=== PATIENT | male | born 1985 | race Caucasian/White ===

== ENCOUNTER 2016-03-10 02:38 | Emergency (ER) | payer MEDICARE ==
[~2016-03-10] VITALS: Ht 175.3 cm; Wt 125.2 kg
[2016-03-10] MEDS ORDERED: PERPHENAZINE16 MG PO (03:02)
[2016-03-10] MEDS ORDERED: COGENTIN GENERIC1 MG PO (03:04)
[2016-03-10] MEDS ORDERED: GABAPENTIN 400400 MG PO (03:05)
[2016-03-10] MEDS ORDERED: WARFARIN SODIUM4 MG PO (03:07)
[2016-03-10] MEDS ORDERED: OMEPRAZOLE40 MG PO (03:08)
[2016-03-10] MEDS ORDERED: IBUPROFEN800 MG PO (03:10)
[2016-03-10 03:36] LABS: HEMOGLOBIN 15.7 g/dL (14.1-18.0); LYMPH # 2.5 K/mm3 (0.7-4.5); LYMPH % 28.7 % (10-50)
[2016-03-10 03:37] LABS: URINE BILIRUBIN - DIPSTICK NEGATIVE (NEG); URINE BLOOD NEGATIVE (NEG)
--- NOTE | 2016-03-10 04:36 | Emergency Room Report ---
History of Present Illness Time Seen by MD Sanchez Presenting Problem in Triage Pt arrived:Walked Presenting Problem:"FEELS LIKE HE HAS THE FLU" - DRY HEAVING, SHAKING, COLD SWEAT, STOMACH UPSET Onset of symptoms date/time:03/10/1602/23/99 or onset unknown for: Treatment Prior to Arrival: ECHOCARDIOGRAPH TECHNICIAN Provided by: Sepsis Risk Assessment: Temp: 97.6 B/P: 167/84 MAP: 111 Pulse: 111 Resp: 22 Recent fever? Y Clinical Suspician of Infection? N Mental Status: 1 - Regular (Normal Baseline) Sepsis Risk:Possible Sepsis Risk Have you (or family members/close friends) recently traveled outside the [place]? N If Yes, where/when: Have you had exposure to infectious disease within the past month? N TB? Other? Specify: Source patient, RN notes reviewed, old records Exam Limitations no limitations Comment achey with feeling of sweaty with abd pain and no rash which started tonight Cardiac Chest Pain Chest pain indicative of cardiac No Timing/Duration this evening Severity moderate ALLERGIES Coded Allergies: haloperidol (From HALDOL) (Severe, SEIZURES 03/10/16) risperidone (From RISPERDAL) (Severe, SEIZURES 03/10/16) ziprasidone (From GEODON) (Severe, SEIZURES 03/10/16) Home Medications Reported Medications Perphenazine 16 MG PO BID BENZTROPINE MESYLATE (COGENTIN 1MG TAB) 1 MG PO QHS GABAPENTIN (Gabapentin) 400 MG PO TID Warfarin Sodium (Warfarin 4MG) 4 MG PO BID Omeprazole (Omeprazole 40MG) 40 MG PO DAILY Ibuprofen (Ibuprofen 800MG) 800 MG PO Q8HP PRN PAIN MISCELLANEOUS (UNKNOWN MEDICATION) 1 LAURA TP BID History Medical History General CAD? No Angina: Yes [place]: Yes Hypertension? Yes Hyperlipidemia? No CHF? No DVT? No PE? No COPD? No Asthma? Yes Anemia? No GERD? No Gastric ulcers? Yes GI Bleed? Yes Hernia? No Thyroid Problems? No Hypothyroidism? No CVA? No Seizures? Yes Diabetes? No Renal Insuffiency? No End Stage Renal Disease? No UTI? No Stones? No GB Disease: No Nephritic Syndrome? No Asplenia? No Hepatitis? No Sickle Cell Disease? No Arthritis? Yes Migraines? Yes Cataracts? No Glaucoma? No MRSA? No HIV? No TB? No Anxiety? Yes Depression? Yes Cancer? No More? Yes Additional hx: DILUTIONAL PSYCHIZOPHRENIA, PARASTHESIA Immunization Hx DT/Tetanus > 10 Years Ago Surgical Hx Previous Surgery?Y TONSILS Social History Smoking Hx Smoker: Current Every Day Smoker Tobacco: Yes Type Cigarettes Packs/day < 1 Pack Alcohol Alcohol: No Drugs none Review of Systems All Other Systems Reviewed and Negative Constitutional see HPI, denies fever, other Eyes denies drainage ENT denies: ear discharge, epistaxis, throat pain. Respiratory denies cough, denies shortness of breath, denies wheezing Cardiovascular see HPI, denies chest pain, denies syncope Gastrointestinal see HPI, abdominal pain, diarrhea, denies vomiting Genitourinary denies: dysuria, frequency. Musculoskeletal denies back pain, denies joint pain, denies joint swelling, denies neck pain Skin denies rash Psychiatric/Neurological denies headache, denies seizure Physical Exam Vital Signs Vital Signs Date Time Temp Pulse Resp B/P Pulse O2 O2 Flow FiO2 Ox Delivery Rate 03/10 0450 98.5 86 20 142/85 95 / 0443 98.5 86 20 142/85 95 / 0243 97.6 111 22 167/84 94 - WBC >12,000 or <4,000 or 10% bands? 2 or more SIRS Criteria Met? B/P:167/84 MAP:111 Creatinine >2.0? UA output<0.5ml/kg/hr for 2 hrs? Platelet count >100,000? Lactate >2.0mmol/1? INR >1.2 or PTT > than 60 sec? Evidence of Organ Dysfunction? Provider documented clinical suspician of infection? N Sepsis Criteria Count: 2 Sepsis Risk: Possible Sepsis Risk General Appearance no apparent distress Eye Exam - bilateral eye PERRL, bilateral eye EOMI Ear, Nose, Throat normal ENT inspection Neck supple Respiratory Status No: respiratory distress. Lung Sounds bilateral: lungs clear. 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 No Results/Orders Laboratory Tests 03/10/16 0320: Sodium 138, Potassium 3.8, Chloride 101, Carbon Dioxide 27, BUN 10, Creatinine 0.9, Estimated Creat Clear 214 H, Estimated GFR (MDRD) 100, Glucose 105, Calcium 9.2, Total Bilirubin 0.3, AST 13 L, ALT 35, Alkaline Phosphatase 127 H , Total Protein 7.2, Albumin 3.8, Globulin 3.4 H, Albumin/Globulin Ratio 1.1, Amylase 38, Lipase 103, PT 10.2, INR 0.95, WBC 8.7, RBC 5.29, Hgb 15.7, Hct 46.7 , MCV 88.3, RDW 13.4, Plt Count 271, MPV 8.5, Gran % 62.3, Gran # 5.4, Lymphocytes % 28.7, Monocytes % 5.8, Eosinophils % 2.7, Basophils % 0.6, Lymphocytes # 2.5, Monocytes # 0.5, Eosinophils # 0.2, Basophils # 0.1, PUBS MCHC 33.7, MCH 29.7 03/10/16 0305: Influenza Type A Ag NOT DETECTED, Influenza Type B Ag NOT DETECTED 03/10/16 0300: Urine Color YELLOW, Urine Appearance CLEAR, Urine pH 6.0, Ur Specific [place] <= 1.005, Urine Protein NEGATIVE, Urine Ketones NEGATIVE, Urine Blood NEGATIVE, Urine Nitrate NEGATIVE, Urine Bilirubin NEGATIVE, Urine Urobilinogen 0.2, Ur Leukocyte Esterase NEGATIVE, Urine WBC OCC, Urine Bacteria OCC, Urine Glucose NEGATIVE Current Medication Orders Sig/Tsering Start time Last Medication Dose Route Stop Time Status Admin Sodium Chloride 10 ML PRN PRN 03/10 033 AC IV 03/11 323 Orders Procedure Date/time Status DIET-NOTHING BY MOUTH 03/[address] ABD/PELVIS REQ 03/10 337 Complete PROTHROMBIN TIME 03/10 337 Complete IV SALINE LOCK 03/10 323 Active LIPASE 03/10 323 Complete CBC WITH AUTO DIFF 03/10 323 Complete CHEM 12 PROFILE 03/10 323 Complete AMYLASE 02/01 0324 Complete URINALYSIS/COMPLETE 03/10 0301 Complete INFLUENZA A&B ANTIGENS 03/10 0244 Complete XRAY/CT/US XRAY/CT/US CT abdomen, pelvis CT interpretation by discussed w/radiologist Time results known: 434 CT Results normal/NAD Departure Departure Time of Disposition 043 Disposition DC Home or Self Care(routine) Clinical Impression Primary Impression: Abdominal pain Qualifiers: Abdominal location: generalized Qualified Code: R10.84 - Generalized abdominal pain Condition STABLE Referrals [facility] Patient Instructions DI for Abdominal Pain-Adult Additional Instructions see your dr for follow up Discharge Counseling Counseled pt/family regarding diagnosis, test results, follow up needs ED Critical Care Critical Care No at 0811
[2016-03-10 04:50] VITALS: BP 142/85
--- NOTE | 2016-03-10 07:42 | RADIOLOGY REPORT PS360 ---
CT ABD PELVIS W/O CONTRAST CLINICAL INDICATION: Mid abdominal pain ABD PAIN ORDERING PHYSICIAN: Bo Aparicio MD PATIENT AGE: 30 years COMPARISON: None TECHNIQUE: Axial images obtained with sagittal and coronal reformats. PROCEDURE: Oral Contrast: None IV Contrast: None . FINDINGS: Lower thorax: Small amount of gas is present in the distal esophagus nonspecific and could be seen with reflux or swallowed air ABDOMEN: Liver: No masses or biliary dilatation. Gallbladder: Nondistended. No radio opaque stones. Pancreas: No masses or peripancreatic fluid collections. Spleen: Borderline splenomegaly at 14 cm Adrenals: Unremarkable Kidneys/ureters: No masses. No renal calculi. No hydronephrosis. No perinephric fluid collections. No ureteral dilatation or obvious ureteral calculi. Stomach bowel: Nondistended. No obvious mass or thickening. Appendix: No evidence of appendicitis. PELVIS: Reproductive: Unremarkable Bladder: Nondistended. No obvious stones or masses. ABDOMEN & PELVIS: Peritoneum: No abnormal fluid collections. No obvious inflammatory changes. No free air. Lymph nodes: There are a few scattered small nonenlarged nodes within the mesentery's Vasculature: No evidence of abdominal aortic aneurysm. No retroperitoneal hemorrhage evident. Bones: No acute fracture IMPRESSION: No acute intra-abdominal or pelvic pathology
== END 2016-03-10 04:50 | disposition home or self-care (01) ==
LOC: ER 02:38
PROVIDERS: Emergency Medicine
DX: R10.84 Generalized abdominal pain (principal); I10 Essential (primary) hypertension; F41.8 Other specified anxiety disorders; Z72.0 Tobacco use; F20.9 Schizophrenia, unspecified